=== PATIENT | female | born 1970 | race American Indian/Alaskan Native ===

== ENCOUNTER 2021-11-09 15:09 | Emergency (ER) | payer SELFPAY ==
[2021-11-09 16:45] VITALS: BP 113/54
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
== END 2021-11-09 17:20 | disposition home or self-care (01) ==
LOC: ED 15:09
DX: M25.511 Pain in right shoulder (principal); R22.0 Localized swelling, mass and lump, head; R51.9 Headache, unspecified; Z79.899 Other long term (current) drug therapy; V87.7XXA Person injured in collision between other specified motor vehicles (traffic), initial encounter; Y93.89 Activity, other specified; Y92.488 Other paved roadways as the place of occurrence of the external cause; Y99.8 Other external cause status
CPT/HCPCS: 99283